=== PATIENT | male | born 1955 | race African-American/Black ===

== ENCOUNTER 2018-08-27 10:15 | Observation (INO) ==
[2018-08-27] MEDS ORDERED: SODIUM CHLORIDE 0.9% 1,000 ML IV STA (10:30)
[2018-08-27] MEDS ORDERED: DEXTROSE 50% 25 GM/50 ML SYRINGE IV ONE (10:41)
[2018-08-27 10:46] LABS: Basophils % 0.2 % (0.0-0.8); Eosinophils # 0.1 10*3/uL (0.0-0.87); Eosinophils % 0.5 % (0.00-10.9); Hematocrit 42.9 VOL% (42.0-52.0); Hemoglobin 13.5 GM/DL (14.0-18.0); Immature Granulocytes % 0.5 %; Immature Granulocytes Absolute 0.05 #; Lymphocytes % 9.1 % (21.2-54.2); Mean Corpuscular HGB Conc 31.5 GM/DL (32-36); Mean Corpuscular Volume 91.5 FL (87-102); Monocytes % 10.4 % (1.7-12.7); Neutrophils % 79.3 % (38.7-73.9); Platelet Count 157 T/CUMM (130-400); Red Blood Count 4.69 MC/CUMM (3.8-5.5); Red Cell Distribution Width 13.1 % (9.3-17.3); White Blood Count 10.7 T/CUMM (4-12)
[2018-08-27 10:50] LABS: INR 1.2; PT Patient Result 13.4 SECS
[2018-08-27] MEDS ORDERED: DEXTROSE 50% 25 GM/50 ML VIAL IV STA (10:58)
[2018-08-27] MEDS: DEXTROSE 5% NACL 0.45% 1,000 ML IV SCH ×3 (11:29→22:16)
[2018-08-27 11:32] LABS: Albumin 3.1 G/DL (3.4-5.0); Bilirubin,Total 1.5 MG/DL (0.2-1.0); Calcium 8.7 MG/DL (8.5-10.1); Osmolality,Calculated 282.1 MOS/KG (273-304)
[2018-08-27 12:06] LABS: Apearance,Urine CLOUDY (Clear); Bilirubin,Urine Negative (Negative); Blood, Urine Moderate mg/dL (Negative); Glucose,Urine (UA) Negative (Negative); Ketones,Urine 20 mg/dL (Negative); Mucus,Urine Many /LPF (Occasional); Nitrite,Urine Negative (Negative); Protein,Urine 100 MG/DL; RBC,Urine 2 /HPF (0-4); Urine Color Amber (Yellow); Urine Specific Gravity 1.023 (1.001-1.035); WBC,Urine 3 /HPF (0-6)
[2018-08-27 12:09] LABS: Barbiturates Screen,Urine Negative (Negative); Benzodiazepines Screen,Urine Negative (Negative); Cannabinoid Screen,Urine Negative (Negative); Opiate Screen,Urine Negative (Negative); Phencyclidine Screen,Urine Negative (Negative)
[2018-08-27] MEDS ORDERED: ONDANSETRON 4 MG/2 ML VIAL IV PRN (13:34)
[2018-08-27] MEDS ORDERED: DOCUSATE SODIUM 100 MG CAPSULE PO PRN (13:34)
[2018-08-27] MEDS ORDERED: MAGNESIUM SULF RIDER 4 GM in PREMIX 1 EACH IV PRN (14:32)
[2018-08-27] MEDS ORDERED: MAGNESIUM SULF RIDER 2 GM in PREMIX 1 EACH IV PRN (14:32)
[2018-08-27] MEDS: POTASSIUM CHLORIDE 20 MEQ TABLET PO PRN ×3 (17:11→20:38)
[2018-08-27] MEDS ORDERED: APIXABAN 5 MG TABLET PO SCH (21:00)
[2018-08-28 05:21] LABS: Basophils % 0.2 % (0.0-0.8); Eosinophils # 0.3 10*3/uL (0.0-0.87); Eosinophils % 2.8 % (0.00-10.9); Hematocrit 35.1 VOL% (42.0-52.0); Immature Granulocytes % 0.7 %; Immature Granulocytes Absolute 0.06 #; Lymphocytes # 1.2 10*3/uL (1.4-4.0); Lymphocytes % 13.3 % (21.2-54.2); Mean Corpuscular HGB Conc 32.2 GM/DL (32-36); Mean Corpuscular Volume 90.2 FL (87-102); Mean Platelet Volume 11.6 FL (9.6-12.0); Monocytes % 13.5 % (1.7-12.7); Neutrophils % 69.5 % (38.7-73.9); Platelet Count 149 T/CUMM (130-400); Red Blood Count 3.89 MC/CUMM (3.8-5.5)
[2018-08-28 05:22] LABS: Calcium 7.8 MG/DL (8.5-10.1); Osmolality,Calculated 279.4 MOS/KG (273-304); Thyroid Stimulating Hormone 0.402 uIU/ml (0.358-3.74)
[2018-08-28 05:28] LABS: Hemoglobin 11.3 GM/DL (14.0-18.0)
[2018-08-28] MEDS: DEXTROSE 5% NACL 0.45% 1,000 ML IV SCH ×2 (05:59→17:00)
[2018-08-28] MEDS: POTASSIUM CHLORIDE 20 MEQ TABLET PO PRN (06:02)
[2018-08-28] MEDS ORDERED: ceFAZolin 1,000 MG VIAL IRRIG ONE (07:49)
[2018-08-28] MEDS ORDERED: ceFAZolin 1,000 MG in SYRINGE 1 EACH IV ONE (08:00)
[2018-08-28] MEDS: ASPIRIN EC 81 MG TABLET PO SCH (08:55)
[2018-08-28] MEDS: NITROFURANTOIN MACRO/MONO 100 MG CAPSULE PO SCH ×2 (10:48→20:37)
[2018-08-28] MEDS ORDERED: ceFAZolin 1,000 MG VIAL ONE (15:01)
[2018-08-28] MEDS ORDERED: HEPARIN/NACL 0.9% 2 UNITS/ML 500 ML IV ONE (15:03)
[2018-08-28] MEDS ORDERED: fentaNYL 100 MCG/2 ML VIAL ONE (15:04)
[2018-08-28] MEDS ORDERED: MIDAZOLAM 2 MG/2 ML VIAL ONE (15:04)
[2018-08-28] MEDS ORDERED: LIDOCAINE 1% 20 ML VIAL ONE (15:10)
[2018-08-28] MEDS ORDERED: TISSUE ADHESIVE 1 EACH APPLICATOR TOP ONE (16:08)
[2018-08-28] MEDS ORDERED: ACETAMINOPHEN 325 MG TABLET PO PRN (16:19)
[2018-08-28] MEDS ORDERED: oxyCODONE/ACETAMINOPHEN 5-325 MG TABLET PO PRN (16:19)
[2018-08-28] MEDS: ceFAZolin 1,000 MG in SYRINGE 1 EACH IV SCH (22:25)
[2018-08-29 03:36] LABS: Basophils % 0.3 % (0.0-0.8); Eosinophils # 0.2 10*3/uL (0.0-0.87); Hematocrit 34.6 VOL% (42.0-52.0); Hemoglobin 11.5 GM/DL (14.0-18.0); Immature Granulocytes % 0.3 %; Immature Granulocytes Absolute 0.02 #; Mean Corpuscular HGB Conc 33.2 GM/DL (32-36); Mean Corpuscular Volume 88.7 FL (87-102); Monocytes % 11.9 % (1.7-12.7); Neutrophils % 70.5 % (38.7-73.9); Platelet Count 156 T/CUMM (130-400); Red Cell Distribution Width 12.9 % (9.3-17.3); White Blood Count 7.4 T/CUMM (4-12)
[2018-08-29 04:01] LABS: Calcium 8.1 MG/DL (8.5-10.1); Osmolality,Calculated 280.3 MOS/KG (273-304)
[2018-08-29] MEDS: NITROFURANTOIN MACRO/MONO 100 MG CAPSULE PO SCH ×2 (09:05→21:11)
[2018-08-29] MEDS: ASPIRIN EC 81 MG TABLET PO SCH (09:05)
[2018-08-29] MEDS: cephALEXin 500 MG CAPSULE PO SCH ×2 (09:05→21:11)
[2018-08-29] MEDS: ceFAZolin 1,000 MG in SYRINGE 1 EACH IV SCH ×4 (09:06→09:09)
[2018-08-29] MEDS ORDERED: SACUBITRIL/VALSARTAN 49-51 MG TABLET PO SCH (11:00)
[2018-08-29] MEDS: SOTALOL 80 MG TABLET PO SCH ×2 (11:05→21:11)
[2018-08-30] MEDS: cephALEXin 500 MG CAPSULE PO SCH (08:38)
[2018-08-30] MEDS: SOTALOL 80 MG TABLET PO SCH (08:39)
[2018-08-30] MEDS: ASPIRIN EC 81 MG TABLET PO SCH (08:39)
[2018-08-30] MEDS: NITROFURANTOIN MACRO/MONO 100 MG CAPSULE PO SCH (08:39)
[2018-08-30 12:00] VITALS: BP 111/75
== END 2018-08-30 14:12 | disposition home or self-care (01) ==
LOC: EDUNIT# → N.ED 10:15 → N.EDINP 10:15 → SUATTDRO 13:31 → N.TELES 14:49
PROVIDERS: ADMIT Internal Medicine; ATTEND Internal Medicine